=== PATIENT | male | born 1985 | race Caucasian/White ===

== ENCOUNTER 2021-12-30 01:25 | Emergency (ER) | payer OTHER | END 2021-12-30 01:53 | disposition left against medical advice (07) | LOC: ER 01:25 | DX: Z53.21 Procedure and treatment not carried out due to patient leaving prior to being seen by health care provider (principal) ==

== ENCOUNTER 2025-02-09 09:47 | Emergency (ER) | payer MEDICAID ==
[~2025-02-09] VITALS: Ht 172.7 cm; Wt 82.0 kg
[2025-02-09 09:52] VITALS: O2SAT 100
[2025-02-09 11:45] LABS: BASOPHILS % 0.3 % (0.0-2.0); EOSINOPHILS % 1.1 % (0.0-5.0); HEMATOCRIT. 42.4 % (42.0-52.0); HEMOGLOBIN. 13.9 g/dL (14.0-18.0); LYMPHOCYTES % 14.1 % (20.0-50.0); MEAN PLATELET VOLUME 7.7 fl (7.4-10.4); MONOCYTES % 5.0 % (2.0-8.0); NEUTROPHILS % 79.5 % (40.0-76.0); PLATELET 336 x1000/uL (130-400); RED BLOOD CELL COUNT 4.84 mill/uL (4.7-6.1); RED CELL DISTRIBUTION WIDTH 14.0 % (11.6-14.6)
[2025-02-09 11:54] LABS: CREATININE 1.0 mg/dL (0.6-1.3)
[2025-02-09 11:55] LABS: TROPONIN I HIGH SENSITIVITY 4 ng/L (3.0-53); UREA NITROGEN BLOOD 10 mg/dL (9-23)
[2025-02-09 11:56] LABS: ASPARTATE AMINOTRANSFERASE 16 IU/L (<34); BILIRUBIN DIRECT 0.2 mg/dL (<=3.0)
[2025-02-09 11:57] LABS: BILIRUBIN TOTAL 0.7 mg/dL (0.1-1.0); INR 1.1; PROTEIN TOTAL 6.6 g/dL (6.0-8.3)
[2025-02-09 13:01] VITALS: BP 130/86; PULSE 82; RESP 18; TEMP 36.9; O2SAT 100
== END 2025-02-09 13:02 | disposition home or self-care (01) ==
LOC: ER 09:53
DX: R07.89 Other chest pain (principal); I10 Essential (primary) hypertension; R06.02 Shortness of breath
CPT/HCPCS: 36415; 71045; 80048; 80076; 83735; 83880; 84484; 85025; 85379; 93005; 99285